=== PATIENT | male | born 1975 | race Caucasian/White ===

== ENCOUNTER 2021-11-17 21:41 | Inpatient (IN) | payer BC, SELFPAY ==
[~2021-11-17] VITALS: Ht 172.7 cm; Wt 81.6 kg
[2021-11-17 21:50] VITALS: BP 155/98
--- NOTE | 2021-11-17 21:50 | NUR ---
PT TO A/W IN AMBULANCE FOR BED.
--- NOTE | 2021-11-17 23:02 | NUR ---
TAKEN TO BED 10B
[2021-11-17] MEDS ORDERED: NACL 0.9% 1,000 ML IV SCH (23:15)
[2021-11-17] MEDS ORDERED: ONDANSETRON 4 MG/2 ML VIAL IVP ONE (23:15)
[2021-11-17] MEDS ORDERED: PANTOPRAZOLE 40 MG INJ VIAL IVP ONE (23:15)
--- NOTE | 2021-11-17 23:34 | NUR ---
PT MOVED TO ER BED 4
--- NOTE | 2021-11-17 23:45 | NUR ---
46 Y/O MALE BIBA FOR N/V WITH BLOOD x1 DAY. BINGE DRINKING x2 DAYS. PT PRESENTS TO ED WIT N/V AND SHALLOW RESPIRATIONS S/P CHEST PAIN. PT STATES HE HAD A BOTTLE OF COSTCO VODKA. DENIES DIARRHEA; SKIN IS PINK/WARM/DRY; AAOX4 WITH EVEN AND STEADY GAIT; LUNGS CLEAR BL; HR EVEN AND REGULAR; PT DENIES ANY FEVER OR COUGH AT THIS TIME; PATIENT STATES PAIN OF 7/10 AT THIS TIME IN CHEST AND ABDOMEN; VS TACHYCARDIA; PATIENT POSITIONED FOR COMFORT; HOB ELEVATED; BEDRAILS UP X1; BED DOWN. ER MD MADE AWARE OF PT STATUS. MED HX- ETOH, STOMACH ULCERS NKA
--- NOTE | 2021-11-18 00:22 | NUR ---
POC: MOTHER, ELE
[2021-11-18 00:39] LABS: BASOPHILS # (AUTO) 0.1 K/uL (0.00-0.22); BASOPHILS % (AUTO) 0.3 % (0.0-2.0); HEMATOCRIT 54.1 % (36-52); HEMOGLOBIN 18.2 g/dL (12.0-18.0); LYMPHOCYTES # (AUTO) 1.2 K/uL (2.0-11.5); LYMPHOCYTES % (AUTO) 4.4 % (20.5-51.1); MEAN CORPUSCULAR HEMOGLOBIN 30 pg (27-31); MEAN CORPUSCULAR HGB CONC 34 g/dL (33-37); MEAN CORPUSCULAR VOLUME 90.5 fL (80-94); MONOCYTES # (AUTO) 1.4 K/uL (0.8-1.0); MONOCYTES % (AUTO) 5.2 % (1.7-9.3); NEUTROPHILS # (AUTO) 24.3 K/uL (1.8-7.7); NEUTROPHILS % (AUTO) 90.1 % (42.2-75.2); PLATELET COUNT (AUTO) 446 K/uL (140-450); RED BLOOD CELL COUNT(AUTO) 5.98 MIL/uL (4.20-6.10); RED CELL DISTRIBUTION WIDTH 13.2 % (11.6-13.7)
[2021-11-18 00:44] LABS: WHITE BLOOD COUNT (AUTO) 26.9 K/uL (4.8-10.8)
--- NOTE | 2021-11-18 01:15 | NUR ---
ER AT BESIDE
[2021-11-18] MEDS ORDERED: MORPHINE SULFATE 4 MG/ML SYR IVP ONE (01:20)
[2021-11-18] MEDS ORDERED: ONDANSETRON 4 MG/2 ML VIAL IVP ONE (01:20)
[2021-11-18] MEDS ORDERED: NACL 0.9% 1,000 ML IV ONE (01:20)
[2021-11-18] MEDS ORDERED: MULTIVITAMIN-12 10 ML, THIAMINE 100 MG, MAGNESIUM SULFATE 50% 2,000 MG, FOLIC ACID 5 MG... IV ONE ×5 (02:35)
[2021-11-18] MEDS ORDERED: THIAMINE 200 MG/2 ML VIAL ONE (02:46)
[2021-11-18] MEDS ORDERED: FOLIC ACID 5 MG/ML SYR ONE (02:46)
[2021-11-18] MEDS ORDERED: MAG SULF 2000 MG/WATER PREMIX 50 ML IV ONE (02:46)
[2021-11-18] MEDS ORDERED: MULTIVITAMIN-12 10 ML VIAL IV ONE (02:47)
[2021-11-18] MEDS ORDERED: diphenhydrAMINE 50 MG/ML VIAL IVP ONE (04:10)
[2021-11-18 05:47] LABS: CREATININE 1.6 mg/dL (0.6-1.3); POTASSIUM 4.9 mmol/L (3.5-5.1); TOTAL BILIRUBIN 0.5 mg/dL (0.0-1.0)
[2021-11-18 06:10] LABS: ANION GAP 45.6 (8-16)
--- NOTE | 2021-11-18 06:14 | NUR ---
LAB REPORTS CO2 4.3, BLOOD GLUCOSE 305. DR BANDA (ADMITTING DR) NOTIFIED.
--- NOTE | 2021-11-18 07:38 | NUR ---
Pt report given to estefanía lombardo per waldo lombardo. Transfer of care at this time.
[2021-11-18] MEDS ORDERED: DEXT 5% /NACL 0.9% 1,000 ML IV SCH (08:15)
[2021-11-18] MEDS ORDERED: ACETAMINOPHEN 325 MG TAB PO PRN (08:15)
[2021-11-18] MEDS ORDERED: ZOLPIDEM 5 MG TAB PO PRN (08:15)
[2021-11-18] MEDS ORDERED: DOCUSATE SODIUM 100 MG GELCAP PO PRN (08:15)
[2021-11-18] MEDS ORDERED: ONDANSETRON 4 MG/2 ML VIAL IM/IVP PRN (08:15)
[2021-11-18] MEDS ORDERED: guaiFENesin DM 200/20 MG-10 ML 10 ML UDC PO PRN (08:15)
[2021-11-18] MEDS ORDERED: HYDROcodone/APAP 7.5/325 MG 1 TAB PO PRN (08:15)
[2021-11-18] MEDS ORDERED: POTASSIUM CHLORIDE 10 MEQ TABER PO PRN (08:15)
--- NOTE | 2021-11-18 08:31 | NUR ---
pt states he would like to leave [facility], does not wish to stay in er at this time. [facility] formed signed. dr tripathi and melissa made aware.
[2021-11-18 08:33] VITALS: BP 148/81
[2021-11-18] MEDS ORDERED: PANTOPRAZOLE 40 MG TABEC PO SCH (09:00)
--- NOTE | 2021-11-20 09:22 | NUR ---
DC PLANNING: CLINICAL INFORMATION REQUESTED FROM , ALL NOTES FAXED TO [phone], ZORAIDA BROWN ([phone]). CM WILL FOLLOW.
== END 2021-11-18 08:26 | disposition left against medical advice (07) | DRG 871 ==
LOC: MED 21:41 → MTU 11-18 05:33
PROVIDERS: ADMIT Family Medicine; ATTEND Family Medicine
DX: A41.9 Sepsis, unspecified organism (principal); N17.0 Acute kidney failure with tubular necrosis; K25.4 Chronic or unspecified gastric ulcer with hemorrhage; F10.10 Alcohol abuse, uncomplicated; Y90.9 Presence of alcohol in blood, level not specified; Z53.29 Procedure and treatment not carried out because of patient's decision for other reasons; Z20.822 Contact with and (suspected) exposure to COVID-19
CPT/HCPCS: 36415; 71045; 80053; 83690; 85025; 85610; 85730; 86886; 86900; 86901; 93005; A9153; C9113; J1200; J2270; J2405; J3411; J3475; J3490